=== PATIENT | female | born 1985 | race Caucasian/White ===

== ENCOUNTER → 2022-10-07 11:15 | Outpatient (BNVA) | payer BC, SELFPAY | PROVIDERS: Visit Provider Nurse Practitioner Family | DX: Z13.89 Encounter for screening for other disorder (principal) ==

== ENCOUNTER 2023-04-11 13:36 | Outpatient (AMB) | payer BC, SELFPAY ==
--- NOTE | 2023-04-11 13:37 | A.OFFVIS_ITS ---
Intake Vital Signs 04/11/23 13:39 Height 5 ft 3 in Weight 230 lb 6 oz BMI 40.8 BP 130/66 Blood Pressure Location Lt brachial Position Sitting Pulse 118 H Pulse Source Pulse Oximeter Pulse Oximetry (%) 99 Oxygen Delivery Method Room Air Intake Visit Reasons: 6m follow up SINDY Intake Note: Pt is here for narcolepsy fup. Pt doing well. Allergies No Known Allergies Allergy (Verified 04/11/23 13:43) HPI HPI Comments History of Present Illness Details 37 y/o female patient presents for follo w up of narcolepsy and mild degree of SINDY. Pt reports that narcolepsy with cataplexy symptoms manages well with Xyrem 4.5 g, twice nightly, methylphenidate 54 mg q AM and methylphenidate 10 mg as needed. She sleeps ok 6-8 hrs but still fragmented, Pt's narcolepsy symptoms manages well. She works 9 am to 5 pm. She does not need to drive to work. Pt states that she uses methyphenidate 10 mg PRN occasionally. Pt had home sleep study on 03/25/2014, which showed mild obstructive sleep apnea with total AHI was 7/hr with oxygen mirta was 89%. She was treated with oral appliance, and there is no record for repeat sleep study to confirm efficacy. Pt states that she has headache rarely, maybe one headache every three month and it is very mild. PFSH Surgical History Hx of cholecystectomy Family History Father Hypertension Mother Diabetes Depression Paternal Grandmother Liver problem Paternal Aunt Liver problem Maternal Grandmother Diabetes Social History Household Members: Other Household Members Other:: Apartment Housing: Apartment Alcohol intake: current Alcohol intake frequency: does not drink Patient Tobacco Use Status: Former Tobacco user Review of Systems Const All systems reviewed & are unremarkable except as noted in HPI and below ENT Reports Normal hearing present Neuro Reports Normal hearing present Physical Exam Vital Signs: Last Vital Signs Pulse 118 H 04/11/23 13:39 BP 130/66 04/11/23 13:39 Pulse Ox 99 04/11/23 13:39 Oxygen Delivery Method Room Air 04/11/23 13:39 BMI result Body Mass Index 40.8 Const General: cooperative Orientation/consciousness: patient oriented x3 Resp Effort & Inspection: normal respiratory effort and able to speak in complete sentences Neuro General: patient oriented x3 Cranial nerves: Yes Normal facial strength present, Yes Normal hearing present, Yes Ability to bilaterally rotate head present and Yes Ability to bilaterally elevate shoulders present Cognition (Neuro): normal cognition Psych Appearance: grossly normal Mental Status: mental status grossly normal Affect: normal affect Attitude: cooperative Assessment & Plan Assessment & Plan (1) Narcolepsy and cataplexy: Comment: MSLT confirmed. 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 Code(s): G47.33 - Obstructive sleep apnea (adult) (pediatric) Plan Advised patient to continue to Xyrem 4.5 mg BID at night. Continue to take methyphenidate 54 mg daily and 10 methylphenidate as needed. Use dental device nightly. Wt reduction advised. Coding Level of Care Code Est Pt Level 4 (87833) Diagnoses Narcolepsy and cataplexy G47.411 SINDY (obstructive sleep apnea) G47.33
[2023-04-11 13:39] VITALS: BP 130/66; PULSE 118; O2SAT 99; BMI 40.8
== END 2023-04-11 14:00 | disposition home or self-care (01) ==
PROVIDERS: Visit Provider Nurse Practitioner Family
DX: G47.411 Narcolepsy with cataplexy (principal); G47.33 Obstructive sleep apnea (adult) (pediatric)
CPT/HCPCS: 99214

== ENCOUNTER → 2023-04-11 13:36 | Outpatient (BNVA) | payer BC, SELFPAY | PROVIDERS: Visit Provider Nurse Practitioner Family ==

== ENCOUNTER 2024-05-24 08:57 | Outpatient (AMB) | payer BC, SELFPAY ==
--- NOTE | 2024-05-24 08:59 | A.OFFVIS_ITS ---
Vital Signs 05/24/24 09:02 Height 5 ft 3 in BP 140/82 H Blood Pressure Location Rt brachial Position Sitting Intake Visit Reasons: 1 yr follow up SINDY Intake Note: Patient presents for 1 year follow up. Allergies No Known Allergies Allergy (Verified 05/24/24 09:00) Medication List - Last Reconciled 05/24/24 by Fang Murguia MD cholecalciferol (vitamin D3) 125 mcg PO DAILY metformin 500 mg PO DAILY methylphenidate HCl 10 mg PO DAILY 30 days methylphenidate HCl ER 54 mg PO QAM 30 days sodium,calcium,mag,pot oxybate 0.5 gram/mL (Xywav) 4.5 grams (9 mL) PO BID 30 days venlafaxine ER 75 mg PO DAILY 30 days HPI Comments Details: 39 y/o female patient presents for follow up of narcolepsy and mild degree of SINDY. Pt reports that narcolepsy with cataplexy symptoms manages well with Xywav 4.5 g, twice nightly, methylphenidate 54 mg q AM and methylphenidate 10 mg as needed. she is doing good . She sleeps ok 6-8 hrs but still fragmented,she has rare cataplexy episodes - mild speech slurring Pt's narcolepsy symptoms manages well. She works 9 am to 5 pm. She does not need to drive to work. Pt had home sleep study on 03/25/2014, which showed mild obstructive sleep apnea with total AHI was 7/hr with oxygen mirta was 89%. She was treated with oral appliance, and there is no record for repeat sleep study to confirm efficacy. Pt states that she has headache rarely, maybe one headache every three month and it is very mild. [facility] Surgical History Hx of cholecystectomy Family History Father Hypertension Mother Diabetes Depression Paternal Grandmother Liver problem Paternal Aunt Liver problem Maternal Grandmother Diabetes Social History Household Members: Other Household Members Other:: Apartment Housing: Apartment Alcohol intake: current Alcohol intake frequency: does not drink Patient Tobacco Use Status: Former Tobacco user Review of Systems ENT Reports Normal hearing present Neuro Reports Normal hearing present Physical Exam Vital Signs: Last Vital Signs BP 140/82 H 05/24/24 09:02 Const General: cooperative Orientation/consciousness: patient oriented x3 Resp Effort & Inspection: normal respiratory effort and able to speak in complete sentences Neuro General: patient oriented x3 Cranial nerves: Yes Normal facial strength present, Yes Normal hearing present, Yes Ability to bilaterally rotate head present and Yes Ability to bilaterally elevate shoulders present Cognition (Neuro): normal cognition Psych Appearance: grossly normal Mental Status: mental status grossly normal Affect: normal affect Attitude: cooperative Assessment & Plan Assessment & Plan (1) Narcolepsy and cataplexy: Comment: MSLT confirmed. 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 Code(s): G47.33 - Obstructive sleep apnea (adult) (pediatric) Category: Medical Plan Advised patient to continue to Xywav 4.5 mg BID at night. Continue to take methyphenidate 54 mg daily and 10 methylphenidate as needed. Use dental device nightly. Wt reduction advised. repeat HST to evaluate SINDY with oral appliance Orders: Orders RT home sleep study 05/24/24 G47.33 - Obstructive sleep apnea (adult) (pediatric), G47.411 - Narcolepsy with cataplexy Medications: Discontinued methylphenidate HCl Partial Fill upon patient request. Discontinued Reason: Patient no longer taking 20 mg PO QAM 30 days 30 tabs 0RF Coding Level of Care Code Est Pt Level 4 (07701) Complex EM visit Add On G2211 Diagnoses Narcolepsy and cataplexy G47.411 SINDY (obstructive sleep apnea) G47.33
[2024-05-24 09:02] VITALS: BP 140/82
== END 2024-05-24 09:44 | disposition home or self-care (01) ==
PROVIDERS: Absent Provider Psychiatry & Neurology Neurology; Visit Provider Physician Assistant Medical
DX: G47.411 Narcolepsy with cataplexy (principal); G47.33 Obstructive sleep apnea (adult) (pediatric)
CPT/HCPCS: 99214

== ENCOUNTER → 2024-05-24 08:57 | Outpatient (BNVA) | payer BC, SELFPAY | PROVIDERS: Absent Provider Psychiatry & Neurology Neurology; Visit Provider Physician Assistant Medical ==

== ENCOUNTER → 2024-07-08 14:46 | Outpatient (REF) | payer BC, SELFPAY | LOC: HO.SL 14:46 | PROVIDERS: PCP Internal Medicine; Visit Provider Psychiatry & Neurology Neurology | DX: G47.33 Obstructive sleep apnea (adult) (pediatric) (principal); G47.411 Narcolepsy with cataplexy | CPT/HCPCS: 95806 ==

== ENCOUNTER → 2024-07-08 14:59 | Outpatient (BNV) | payer BC, SELFPAY | PROVIDERS: PCP Internal Medicine; Visit Provider Psychiatry & Neurology Neurology | DX: R06.83 Snoring (principal); G47.10 Hypersomnia, unspecified | CPT/HCPCS: 95806 ==